=== PATIENT | female | born 1965 | race Caucasian/White ===

== ENCOUNTER 2022-03-29 14:29 | Emergency (ER) | payer OTHER, SELFPAY ==
--- NOTE | ~2022-03-29 | XR_ITS ---
EXAM: XR shoulder LT min 2V DATE: 03/29/2022 16:03 HISTORY: Item fell on pt's left arm. Pain posterolateral lt shoulder . COMPARISON: None available. FINDINGS: Normal mineralization. No fracture or dislocation. No lytic or blastic lesion. Mild degene rative AC joint and glenohumeral change. No erosion or periosteal change. Soft tissues within normal limits. IMPRESSION: No acute osseous finding in the left shoulder. Reviewed, dictated and finalized at location K. LRY CONSULTANT
--- NOTE | ~2022-03-29 | CT_ITS ---
EXAMINATION: 1. CT facial & cervical spine wo DATE: 03/29/2022 15:42 INDICATION: Trauma with head and facial injury TECHNIQUE: 1. Computed tomography (CT) of the maxillofacial region and of the cervical spine were performed with out intravenous contrast. Sagittal and coronal reconstructions of both regions were obtained. Automat ed exposure control and iterative reconstruction technique were employed. The dose-length product was 153.27 mGy-cm. COMPARISON: None. FINDINGS: Maxillofacial CT: Abnormal contour along portions of the bilateral nasal bones suggesting angulation related to fractur e. There is corresponding leftward deviation of the anterior nasal septum. There is however no clearl y evident linear lucent fracture line or associated soft tissue swelling or soft tissue gas which fav ors sequela of chronic rather than acute fracture. No other lesions suspicious for acute fracture denver ntified. Specifically the howard of the orbits and paranasal sinuses, zygomatic arches, mandible and p terygoid plates are all appear intact. Minimal mucoperiosteal thickening the bilateral ethmoid sinuse s and at the inferior right maxillary sinus. Normal alignment and mild osteoarthritis at the bilatera l temporomandibular joints. Orbits are normal. Cervical spine CT: 1 mm anterolisthesis C4 on C5 and 102 mm anterolisthesis C5 on C6. Vertebral body heights are normal. No fracture. Disc heights are normal. Multilevel severe bilateral cervical facet osteoarthritis. Sev ere uncovertebral osteoarthritis on the left at C3-C4 and moderate uncovertebral osteoarthritis on th e right at C4-C5. Additional multilevel mild cervical uncovertebral osteoarthritis. Together this res ults in multilevel bilateral cervical neural foraminal stenosis, moderate on the left at C3-C4 and C4 -C5 and otherwise mild. No significant central canal stenosis. Cervical soft tissues are unremarkable . Mild biapical pleural-parenchymal scarring. IMPRESSION: 1. There is some angulation to the bilateral nasal bones and anterior nasal septum without evident ac [place] appearing lucent linear fracture plane and without associated soft tissue swelling suggesting seq uela chronic rather than acute fractures. Correlate with clinical history and for point tenderness. N o other lesions suspicious for acute maxillofacial fracture. 2. Mild cervical spondylosis with severe bilateral cervical facet osteoarthritis. No acute osseous ab normality. Reviewed, dictated and finalized at location A. BURN OUT TENDER IMPRESSION: 1. There is some angulation to the bilateral nasal bones and anterior nasal sep tom without evident acute appearing lucent linear fracture plane and without as sociated soft tissue swelling suggesting sequela chronic rather than acute frac tures. Correlate with clinical history and for point tenderness. No other lesio ns suspicious for acute maxillofacial fracture. 2. Mild cervical spondylosis with severe bilateral cervical facet osteoarthriti s. No acute osseous abnormality.
--- NOTE | ~2022-03-29 | CT_ITS ---
EXAMINATION: CT brain wo con DATE: 03/29/2022 15:38 INDICATION: Trauma . TECHNIQUE: Computed tomography (CT) of the head was performed without intravenous contrast. The mA wa s adjusted according to patient size. Iterative reconstruction technique was employed. The dose-lengt h product was 605.33 mGy-cm. COMPARISON: None. FINDINGS: No acute intracranial hemorrhage or extra-axial fluid collection. No hydrocephalus, mass, or herniation. No acute ischemic infarct. Unremarkable dural venous sinus attenuation. No acute osseous abnormality. The aerated spaces are clear. Atherosclerotic intracranial calcifications. Bilateral basal ganglia calcification. IMPRESSION: No acute intracranial process. Reviewed, dictated and finalized at location K. WILLOW OPERATOR
--- NOTE | ~2022-03-29 | XR_ITS ---
EXAM: XR wrist LT min 3V DATE: 03/29/2022 16:03 HISTORY: Item fell on pt's left arm. Pain throughout left wrist . COMPARISON: None available. FINDINGS: Normal mineralization. No fracture or dislocation. No lytic or blastic lesion. Degenerativ e changes, moderate at the trapeziometacarpal joint. No erosion or periosteal change. Soft tissues wi thin normal limits. IMPRESSION: No acute osseous finding in the left wrist. Reviewed, dictated and finalized at location K. CIPAL CYBER ENGINEER
--- NOTE | ~2022-03-29 | XR_ITS ---
EXAM: XR elbow LT min 3V DATE: 03/29/2022 16:01 HISTORY: Item fell on pt's left arm. Pain all around left elbow . COMPARISON: None available. FINDINGS: Normal mineralization. No fracture or dislocation. No lytic or blastic lesion. Joint space s are maintained. No erosion or periosteal change. Mild displacement of the anterior fat pad. IMPRESSION: Small left elbow joint effusion which can be seen with occult radial head fractures. Reviewed, dictated and finalized at location K. L MARKETING COORDINATOR IMPRESSION: Small left elbow joint effusion which can be seen with occult radia l head fractures.
[2022-03-29 14:36] VITALS: BP 136/86; PULSE 76; RESP 14; TEMP 36.4; O2SAT 98
[2022-03-29] MEDS: IBUPROFEN 600 MG TABLET PO (15:58)
[2022-03-29 16:28] VITALS: TEMP 36.4
--- NOTE | 2022-03-29 16:51 | ED.GENADULT ---
HPI - General Adult General Chief complaint: Head Injury Stated complaint: hit in head at work Time Seen by Provider: 03/29/22 14:39 Source: RN notes reviewed History of Present Illness HPI narrative: Patient presents emergency department from work for left-sided head face and arm pain. Patient states that just prior to arrival she works at [employer] and was taking a passport photo of someone she had pulled down the screen and was pulling the screen back up on the screen went up and the screw came loose the top of the screen causing the screen to fall down and strike her in the left side of the face and in her arm she states pain in her left arm and face since that time she also states that she has had a severe headache and dizziness she denies any loss of consciousness. She denies any vision changes does note pain in the left side of the neck she denies chest pain shortness of breath abdominal pain vomiting. Did not take anything for the pain Related Data Allergies Allergy/AdvReac Type Severity Reaction Status Date / Time No Known Allergies Allergy Unverified 08/01/15 19:44 Review of Systems Review of Systems: Gen.: Denies fevers or chills Eyes: Denies eye pain or visual change ENT: See HPI Respiratory: Denies shortness of breath or cough CV: Denies chest pain or palpitations GI: Denies abdominal pain nausea, emesis Musculoskeletal: See HPI Neuro: Denies numbness, tingling, weakness or focal weakness Skin: Denies rash Except as documented, all other systems reviewed and negative PMFSH Past Medical History Medical History (Updated 03/29/22 @ 16:57 by Wong Albarado DO) Patient denies significant medical history Social History Social History (Updated 03/29/22 @ 16:53 by Wong Albarado DO) Smoking status: Never smoker Exam Narrative: APPEARANCE: Well appearing, no apparent distress, well-nourished. HEENT: normocephalic tender palpation over left cheek pain with fully opening the jaw there is no loose or avulsed teeth airway is patent TMs clear bilaterally. Oral mucosa moist. There is over the nasal bridge or nasal bone EYES: PERRL NECK: Supple. No midline tenderness to palpation. Tender palpation of the left paravertebral muscles C4-7 RESPIRATORY: No respiratory distress. Clear to auscultation bilaterally CARDIOVASCULAR: Regular rate and rhythm without murmurs rubs or gallops. ABDOMINAL: Soft, nontender, nondistended, no rebound or guarding MUSCULOSKELETAl: Moves all extremities. No tenderness to palpation of right upper and bilateral lower extremities. No clubbing cyanosis or edema tender to palpation diffusely over the left arm, radial pulse 2+ neurovascular intact NEURO: Awake and alert ?3. Follows commands. Speech normal. No focal deficits. SKIN:: Warm, dry. Normal Color Course Course Emergency Course: After CT reevaluated the patient no tenderness over the nasal bones history of previous nasal bone fracture. Discussed with patient and her elbow x-ray showing small effusion no definitive fracture will place in sling with follow-up with PCP Discussed with patient results of workup and diagnosis. Discussed need for follow-up with primary care, proper use of medication, and reasons to return to the emergency department. Patient understands and agrees to current treatment plan Vital Signs Vital signs: Vital Signs Temperature 97.6 F 03/29/22 14:36 Pulse Rate 76 03/29/22 14:36 Respiratory Rate 14 03/29/22 14:36 Blood Pressure 136/86 03/29/22 14:36 Pulse Oximetry 98 03/29/22 14:36 Oxygen Delivery Room Air 03/29/22 14:36 Temperature 97.6 F 03/29/22 14:36 Pulse Rate 76 03/29/22 14:36 Respiratory Rate 14 03/29/22 14:36 Blood Pressure 136/86 03/29/22 14:36 Pulse Oximetry 98 03/29/22 14:36 Oxygen Delivery Room Air 03/29/22 14:36 Medical Decision Making Vital Signs Vital Signs: Vital Signs Temperature 97.6 F 03/29/22 14:36 Pulse Rate 76 03/29/22 14:36
[2022-03-29 17:48] VITALS: BP 147/88; PULSE 76; RESP 18; O2SAT 99
== END 2022-03-29 17:49 | disposition home or self-care (01) ==
PROVIDERS: Emergency Provider Emergency Medicine; PCP Internal Medicine
DX: S00.83XA Contusion of other part of head, initial encounter (principal); S16.1XXA Strain of muscle, fascia and tendon at neck level, initial encounter; S40.022A Contusion of left upper arm, initial encounter; M25.422 Effusion, left elbow; W20.8XXA Other cause of strike by thrown, projected or falling object, initial encounter
CPT/HCPCS: 70450; 70486; 72125; 73030; 73080; 73110; 99284; A4565; A9270

== ENCOUNTER 2023-11-17 02:39 | Day surgery (SDC) | payer OTHER, SELFPAY ==
[2023-11-11 13:23] VITALS: BMI 18.3
--- NOTE | 2023-11-11 13:31 | PC.NURSE ---
Report to the Outpatient Waiting Room, entrance under the green pavilion located off [facility], at time _0600__ on date _11/17/23_. Planned Procedure Time: _07__.? Time changes happen often and if your time is changed the preop area will call you the afternoon before. - You and your visitor will be asked to self-screen and do not enter if you have any COVID symptoms. Please call surgeon if you need to reschedule. - A mask is optional within the hospital at this time. Patients may have clear liquids (water, carbonated beverages, clear teas, apple juice) until 3 hours prior to surgery with a maximum of 20 ounces. - No food from midnight until time of surgery and no smoking - Infants may have breast milk until 4 hours before surgery, formula 6 hours prior to surgery. - Children will be allowed to drink immediately following surgery.? If applicable, please bring a bottle or sippy cup to assist with drinking. Juice, water, soda, and popsicles are readily available.? For infants on formula, please bring formula the day of surgery.? Pacifiers are allowed. Take only the following medications with a SIP of water on the morning of surgery: NONE DO NOT STOP ANY OF YOUR OTHER PRESCRIPTION MEDICATIONS PRIOR TO SURGERY EXCEPT THE FOLLOWING Medications to discontinue per physician NONE Date to take last dose Please no make-up, nail latvian, hairspray, perfume, deodorant, or body powder the day of surgery.? No jewelry (including any body piercings) or valuables the day of surgery, leave them at home.? Please take a shower or bath the night before, or the morning of, surgery with an antibacterial soap.? Wear comfortable, loose fitting clothing.? Children are encouraged to wear pajamas. - Jewelry must be removed prior to entering the operating room.? Rings and piercings that are not removed may be cut off. - The hospital will not accept responsibility for valuables.? - Please leave all valuables, including medications, at home the day of surgery. If you are going home after surgery, a licensed professional driver must drive you home.? - NO public transportation without another adult if you receive anesthesia. - We recommend that an adult stay with you for 24 hours following discharge. - We also recommend that you do not drive, make important decision, drink alcoholic beverages, or take any drugs that were not prescribed by your health care provider for at least 24 hours after your discharge time. For Pediatric surgeries, we recommend two adults accompany the child home. Follow any additional instructions given to you from your surgeon. Telephone instructions given to PATIENT__and asked if any additional questions and then verbalized understanding. Patient advised to call surgeon office or pre surgery nurse liaison [phone] if any additional questions.
[2023-11-17] VITALS (10 sets, daily range): BP systolic 122–164; BP diastolic 71–102; PULSE 58–95; RESP 14–18; TEMP 36.3–37.2; O2SAT 96–100; BMI 18.3
--- NOTE | 2023-11-17 06:31 | P.PNAN_ITS ---
Anes - Initial Pre Proc Eval Procedure: Operation Date: 11/17/23 07:30 Proposed Procedures p Bilateral Breast Augmentation - Humberto Wilson MD Date/Time: 11/17/23 06:31 Surgeon: Humberto Wilson MD Pre Op Diagnosis: micromastia Patient Data Age: 58 Gender: F Height: 1.65 m Weight: 50 kg Allergies Allergy/AdvReac Type Severity Reaction Status Date / Time No Known Allergies Allergy Verified 11/17/23 06:45 Home Medications Medication Instructions Recorded Confirmed Type No Home Medications 11/11/23 11/17/23 History Patient hx anesthesia problems: none Family hx anesthesia problems: none Results Review: All pre-operative results and documents have been reviewed as part of the pre- operative evaluation. [facility] Past Medical History Medical History (Updated 03/30/22 @ 00:01 by Salas Fragoso) Patient denies significant medical history Social History Social History (Updated 03/29/22 @ 16:53 by Wong Albarado, DO) Smoking packs per day: 0.2 Smoking cigarettes per day: 4.0 Years smoked: 5 Smoking pack-years: 1.00 Smoking status: Former smoker Additional smoking assessment comments: QUIT SMOKING 2022 Alcohol intake: current Alcohol use details: 1 DRINK PER MONTH Substance use type: marijuana Other substance usage details: EVERY OTHER DAY/ DAILY Living arrangements: with family Anes - Eval Final PreProcedure Day of Procedure 11/17/23 06:31 Patient weight: normal Heart: regular rate and rhythm Lungs: clear to auscultation Airway: Mallampati scale class II Neurological: alert and oriented Last oral intake: >/= 8 hours ASA classification: II Emergent: no Anesthetic plan: proceed Anesthesia type and monitoring: general LMA and standard monitoring Results Review: All pre-operative results and documents have been reviewed as part of the pre- operative evaluation. Informed Consent: The patient's anesthetic plan and its attendant risks and benefits were discussed with the patient/family/POA. Questions were solicited and answers provided to the satisfaction of the patient/family/POA.
[2023-11-17] MEDS: LACTATED RINGERS 1,000 ML 30 ML IV CONT ×2 (06:50→08:32)
--- NOTE | 2023-11-17 07:05 | WPDHPUPDATE1 ---
History and Physical Update Update Date/Time: 11/17/23 07:05 History and Physical has been reviewed, including an updated exam of the patient. There are NO changes in the patient's condition. Risks, benefits, and alternatives have been discussed and questions answered. Patient agrees to proceed with procedure.
--- NOTE | 2023-11-17 07:15 | W.PM.PROC2 ---
Procedure Note - Detailed Date of Procedure 11/17/23 Pre-op Diagnosis micromastia Post-op Diagnosis Same Procedure Performed Bilateral augmentation mammaplasty Surgeon Humberto Wilson MD Anesthesia General Findings Bilateral Dual plane 2 - 375cc Right - REF# [id number] SN [id number] Left - REF# [id number] SN [id number] Description of Procedure She is here today for bilateral breast augmentation. Previously and again today the risks, benefits, alternatives were discussed in extensive detail. I wanted her to be very realistic about the risks involved as well as expectations. We discussed aftercare and what to monitor for. Made sure answered all of her questions to her satisfaction today and consent was obtained. Marked in the preoperative holding area with their verification. The patient was taken to the operating room placed supine on the operating table. Anesthesia was provided by anesthesiology. A surgical time-out was taken. We cleansed the skin and 1% lidocaine and 0.25% Marcaine with epinephrine was used anesthetize as a field block. She was prepped and draped in a standard sterile fashion. Tegaderm nipple Hernandez were placed. A 15 blade used to make an incision along the inframammary fold. Dissection was continued at 45 degree angle until the chest wall as identified. I incised the pectoralis major along its inferior border and completely released the inferior border leaving the medial border intact. I created a subpectoral pocket in the appropriate dimensions based on our preoperative planning for the implant. I then copiously irrigated with saline solution and verified a strict hemostasis. Next the use a triple antibiotic and Betadine containing solution to irrigate the pocket. I washed my gloves with the triple antibiotic and Betadine solution. We washed the implant immediately upon opening it with this solution and only opened it when we needed it. I used implant funnel and no-touch technique. The implant was introduced into the pocket using the funnel. Having verified positioning of the implant this was closed using 2-0 PDS followed by 3-0 Monocryl in a running subcuticular 4-0 Monocryl followed by tissue glue. Fluffs and surgical bra were placed. Patient was awoke and taken to PACU without difficulty. All instrument sponge counts were correct at the end of the case. Estimated Blood Loss 30 Drains No Packing No Pathology None sent Complications No immediate complications Condition Stable Disposition PACU
[2023-11-17] MEDS: ceFAZolin 2 GM/D5W 50 ML 2 GM/50 ML BAG IVPB (07:28)
[2023-11-17] MEDS: SCOPOLAMINE 1 MG PATCH 1 PATCH TRANSDERM (07:30)
[2023-11-17] MEDS: BUPivacaine HCL 0.25% PF 30 ML VIAL INFILTRATE (07:35)
[2023-11-17] MEDS: TRANEXAMIC ACID 1,000MG/ISO100 1,000 MG/100 ML BAG 200 MG IVPB (07:35)
[2023-11-17] MEDS: fentaNYL CITRATE INJ (*CRX) 100 MCG/2 ML VIAL 25 MCG IV PUSH ×4 (08:39→08:58)
[2023-11-17] MEDS: oxyCODONE HCL (*CRX) 5 MG TAB IR PO (10:01)
== END 2023-11-17 10:48 | disposition home or self-care (01) ==
PROVIDERS: PCP Family Medicine; Visit Provider Surgery Plastic and Reconstructive Surgery
PROC: (CPT 19325; principal; 2023-11-17 07:30)
DX: Z41.1 Encounter for cosmetic surgery (principal); N64.82 Hypoplasia of breast; Z87.891 Personal history of nicotine dependence; F12.90 Cannabis use, unspecified, uncomplicated
CPT/HCPCS: 19325; A9270; J0690; J1100; J1580; J2250; J2405; J2704; J3010; J7120